=== PATIENT | female | born 1930 | race African-American/Black ===

== ENCOUNTER 2017-04-28 15:24 | Emergency (ER) | payer OTHER ==
[~2017-04-28] VITALS: Ht 165.1 cm; Wt 75.0 kg
[~2017-04-28 15:24] MED LIST: AMLO2.5T45 PO; ASPI-1159 PO; CARV12.545 PO; NEPVIT PO; NORT10CA PO; SEVE800T8 PO
[2017-04-28 17:11] LABS: HEMATOCRIT. 23.3 % (36.0-48.0); HEMOGLOBIN. 7.3 g/dL (12.0-16.0); MEAN CORPUSCULAR HEMOGLOBIN 32.6 pg (28.0-32.0); MEAN CORPUSCULAR VOLUME 103.2 fL (81.0-99.0); MEAN PLATELET VOLUME 7.2 fl (7.4-10.4); PLATELET 403 x1000/uL (130-400); RED BLOOD CELL COUNT 2.26 mill/uL (4.2-5.4); RED CELL DISTRIBUTION WIDTH 21.1 % (11.6-14.6)
[2017-04-28 17:12] LABS: CHLORIDE 98 mEq/L (98-107)
[2017-04-28 17:13] LABS: INR 1.2; PROTHROMBIN TIME 12.2 sec (9.4-11.6)
[2017-04-28 17:17] LABS: CARBON DIOXIDE 26 mEq/L (21-32); ETHANOL BLOOD < 10 mg/dL
[2017-04-28 17:42] LABS: PLATELET ESTIMATE NORMAL
[2017-04-28 19:57] VITALS: BP 131/63
== END 2017-04-28 20:34 | disposition home or self-care (01) ==
LOC: ER 15:51
DX: R41.82 Altered mental status, unspecified (principal); I13.2 Hypertensive heart and chronic kidney disease with heart failure and with stage 5 chronic kidney disease, or end stage renal disease; N18.6 End stage renal disease; I50.9 Heart failure, unspecified; D63.1 Anemia in chronic kidney disease; E11.22 Type 2 diabetes mellitus with diabetic chronic kidney disease; I49.1 Atrial premature depolarization; J44.9 Chronic obstructive pulmonary disease, unspecified; Z99.2 Dependence on renal dialysis; F03.90 Unspecified dementia, unspecified severity, without behavioral disturbance, psychotic disturbance, mood disturbance, and anxiety; Z79.82 Long term (current) use of aspirin; Z88.0 Allergy status to penicillin; Z88.6 Allergy status to analgesic agent; Z88.5 Allergy status to narcotic agent
CPT/HCPCS: 36415; 70450; 71010; 80053; 85025; 85610; 93005; 99285; G0482

== ENCOUNTER 2018-07-06 08:25 | Inpatient (IN) | payer OTHER ==
[~2018-07-06] VITALS: Ht 162.6 cm; Wt 56.7 kg
[2018-07-06] MEDS ORDERED: SODIUM CHLORIDE 0.9% 1000ML BAG (SEPSIS BOLUS) IV ONE (09:00)
[2018-07-06 09:53] LABS: BASOPHILS % 2.9 % (0.0-2.0); EOSINOPHILS % 1.5 % (0.0-5.0); HEMATOCRIT. 33.8 % (36.0-48.0); HEMOGLOBIN. 10.5 g/dL (12.0-16.0); LYMPHOCYTES % 8.8 % (20.0-50.0); MEAN CORPUSCULAR VOLUME 90.4 fL (81.0-99.0); MEAN PLATELET VOLUME 8.2 fl (7.4-10.4); MONOCYTES % 1.8 % (2.0-8.0); PLATELET 313 x1000/uL (130-400); RED BLOOD CELL COUNT 3.74 mill/uL (4.2-5.4)
[2018-07-06 09:55] LABS: CHLORIDE 102 mEq/L (98-107)
[2018-07-06 10:08] LABS: INR 1.1; PROTHROMBIN TIME 10.7 sec (9.1-11.1)
[2018-07-06 10:46] LABS: COLOR URINE YELLOW (YELLOW)
[2018-07-06 10:51] LABS: CLARITY URINE TURBID (CLEAR)
[2018-07-06] MEDS ORDERED: FUROSEMIDE 100MG/10ML VIAL IV STA (10:56)
[2018-07-06] MEDS ORDERED: SODIUM BICARBONATE 8.4% 1 MEQ/ML 50ML SYR IV ONE (11:00)
[2018-07-06] MEDS ORDERED: INSULIN REGULAR (HUMULIN R) 300UNITS/3ML IV ONE (11:00)
[2018-07-06] MEDS ORDERED: DEXTROSE 50% WATER 50ML SYRINGE IV ONE (11:00)
[2018-07-06] MEDS ORDERED: ALBUTEROL (0.083%) 2.5MG/3ML NEB HHN ONE (11:00)
[2018-07-06] MEDS ORDERED: CALCIUM GLUCONATE 100MG/ML 10ML VIAL IV ONE (11:00)
[2018-07-06] MEDS ORDERED: CALCIUM GLUCONATE 1000 MG in DEXTROSE 5% WATER 100 ML IV NR (11:30)
[2018-07-06] MEDS ORDERED: ACETAMINOPHEN 650MG SUPP PR PRN (13:30)
[2018-07-06] MEDS ORDERED: ONDANSETRON HCL 4MG/2ML INJ IV PRN (13:30)
[2018-07-06 16:29] VITALS: BP 118/66
[2018-07-06] MEDS: LORAZEPAM 2MG/ML CPJ IV PRN (16:31)
[2018-07-06 18:00] VITALS: BP 105/54
[2018-07-06] MEDS ORDERED: LEVOFLOXACIN 500MG PREMIX 100 ML IV NR (18:00)
[2018-07-06 18:51] VITALS: BP 130/56
[2018-07-06 20:00] VITALS: BP 129/52
[2018-07-06 21:51] LABS: BG BASE EXCESS -3.5 mmol/L (-2.0-2.0); BG CARBOXYHEMOGLOBIN 1.1 % (0.5-1.5); BG DEOXYHEMOGLOBIN 2.8 % (0.0-5.0); BG FRACTION INSPIRED OXYGEN 36; BG HCO3 ACT 20.8 mmol/L (22.0-26.0); BG OXYGEN SATURATION 97.2 % (92.0-98.5); BG OXYHEMOGLOBIN 96.1 % (94.0-97.0); BG PCO2 34.2 mmHg (35.0-45.0); BG PH 7.402 (7.350-7.450); BG PO2 102.7 mmHg (75.0-100.0); BG SAMPLE SITE RIGHT RADIAL; BG TOTAL HEMOGLOBIN 8.3 g/dL (12.0-18.0); BG VENT MODE NASAL CANNULA
[2018-07-06 22:00] VITALS: BP 81/67
[2018-07-06] MEDS ORDERED: ALTEPLASE 2MG/VIAL ITC SCH (22:00)
[2018-07-06] MEDS: MIDODRINE HCL 5MG TABLET PO SCH (23:00)
[2018-07-07] VITALS (15 sets, daily range): BP systolic 105–146; BP diastolic 26–92
[2018-07-07] MEDS ORDERED: NOREPINEPHRINE 4 MG in DEXT 5% WATER 246 ML IV SCH (00:15)
[2018-07-07] MEDS ORDERED: DEXTROSE 50% WATER 50ML SYRINGE IV PRN (00:45)
[2018-07-07 07:00] LABS: HEMATOCRIT. 34.3 % (36.0-48.0); HEMOGLOBIN. 10.2 g/dL (12.0-16.0); MEAN CORPUSCULAR HEMOGLOBIN 27.5 pg (28.0-32.0); MEAN CORPUSCULAR VOLUME 92.8 fL (81.0-99.0); MEAN PLATELET VOLUME 8.1 fl (7.4-10.4); PLATELET 306 x1000/uL (130-400); RED CELL DISTRIBUTION WIDTH 21.1 % (11.6-14.6)
[2018-07-07 07:11] LABS: CHLORIDE 106 mEq/L (98-107)
[2018-07-07] MEDS: INSULIN LISPRO 100 UNITS/ML SUBCUT SCH ×4 (08:00→21:00)
[2018-07-07] MEDS: BLOOD SUGAR DIAGNOSTIC STRIP TEST SCH ×4 (08:10→21:00)
[2018-07-07] MEDS: MIDODRINE HCL 5MG TABLET PO SCH ×3 (09:00→17:06)
[2018-07-07] MEDS: LEVETIRACETAM 250 MG in SODIUM CHLORIDE 0.9% 100 ML IV SCH ×2 (10:31→22:11)
[2018-07-07 11:26] LABS: FOLIC ACID (FOLATE) SERUM 8.1 ng/mL (>5.38)
[2018-07-07 12:25] LABS: T4 FREE 0.78 ng/dL (0.76-1.46)
[2018-07-07 16:41] LABS: PLATELET ESTIMATE NORMAL
[2018-07-07] MEDS: LORAZEPAM 2MG/ML CPJ IV PRN (22:11)
[2018-07-08] VITALS (12 sets, daily range): BP systolic 129–156; BP diastolic 62–92
[2018-07-08] MEDS: INSULIN LISPRO 100 UNITS/ML SUBCUT SCH ×3 (08:00→21:00)
[2018-07-08] MEDS: BLOOD SUGAR DIAGNOSTIC STRIP TEST SCH ×4 (08:10→21:22)
[2018-07-08] MEDS ORDERED: ENOXAPARIN 40MG/0.4ML SYR SUBCUT SCH (09:00)
[2018-07-08] MEDS ORDERED: ENOXAPARIN 30MG/0.3ML SYR SUBCUT SCH (09:00)
[2018-07-08] MEDS: LEVETIRACETAM 250 MG in SODIUM CHLORIDE 0.9% 100 ML IV SCH ×2 (09:36→21:14)
[2018-07-08] MEDS: MIDODRINE HCL 5MG TABLET PO SCH ×3 (09:37→16:46)
[2018-07-08 12:52] LABS: HEMATOCRIT. 33.4 % (36.0-48.0); HEMOGLOBIN. 9.9 g/dL (12.0-16.0); MEAN CORPUSCULAR HEMOGLOBIN 27.8 pg (28.0-32.0); MEAN CORPUSCULAR VOLUME 93.3 fL (81.0-99.0); MEAN PLATELET VOLUME 8.1 fl (7.4-10.4); PLATELET 254 x1000/uL (130-400); RED BLOOD CELL COUNT 3.58 mill/uL (4.2-5.4); RED CELL DISTRIBUTION WIDTH 20.7 % (11.6-14.6)
[2018-07-08 13:45] LABS: PLATELET ESTIMATE NORMAL
[2018-07-08] MEDS ORDERED: LEVOFLOXACIN 250MG PREMIX 50 ML IV SCH (18:00)
== END 2018-07-08 22:40 | disposition short-term general hospital (02) | DRG 314 ==
LOC: ER 08:30 → CANRESERV 11:19 → ENRESERV 11:19 → 5EST 13:03 → EDBEDREQTM 13:09 → EDBEDREQ 13:09 → SUPCPDRO 13:12 → ENRESERV 14:26 → 5EST 17:51
PROVIDERS: ADMIT Hospitalist; ATTEND Hospitalist
PROC: 5A1D70Z Performance of Urinary Filtration, Intermittent, Less than 6 Hours Per Day (ICD-10-PCS; 2018-07-06)
PROC: 4A00X4Z Measurement of Central Nervous Electrical Activity, External Approach (ICD-10-PCS; principal; 2018-07-08)
PROC: 5A1D70Z Performance of Urinary Filtration, Intermittent, Less than 6 Hours Per Day (ICD-10-PCS; 2018-07-08)
DX: T82.41XA Breakdown (mechanical) of vascular dialysis catheter, initial encounter (principal); G92 Toxic encephalopathy; N18.6 End stage renal disease; N39.0 Urinary tract infection, site not specified; I13.2 Hypertensive heart and chronic kidney disease with heart failure and with stage 5 chronic kidney disease, or end stage renal disease; E11.22 Type 2 diabetes mellitus with diabetic chronic kidney disease; E87.5 Hyperkalemia; E83.51 Hypocalcemia; I50.9 Heart failure, unspecified; Y83.8 Other surgical procedures as the cause of abnormal reaction of the patient, or of later complication, without mention of misadventure at the time of the procedure; G40.909 Epilepsy, unspecified, not intractable, without status epilepticus; D64.9 Anemia, unspecified; I25.10 Atherosclerotic heart disease of native coronary artery without angina pectoris; Z99.2 Dependence on renal dialysis; Z88.0 Allergy status to penicillin; Z88.4 Allergy status to anesthetic agent; Z88.5 Allergy status to narcotic agent; Y92.89 Other specified places as the place of occurrence of the external cause; Z79.84 Long term (current) use of oral hypoglycemic drugs
CPT/HCPCS: 36415; 36600; 70551; 71045; 80048; 82140; 82375; 82607; 82746; 82805; 82962; 83036; 83605; 84145; 84439; 84443; 84481; 84484; 92610; 93005; 93970; 94640; 96374; 96375; 99285; J0610; J1650; J1815; J1940; J1953; J1956; J2060; J2997; J3490; J7030; J7040; J7050; J7060; J7611